=== PATIENT | female | born 1985 | race Caucasian/White ===

== ENCOUNTER 2023-08-01 13:31 | Emergency (ER) | payer OTHER, SELFPAY ==
[2023-08-01 13:35] VITALS: BP 146/98
[2023-08-01] MEDS: NSS 1000 IV (15:13)
--- NOTE | 2023-08-01 15:17 | ED.GENMED ---
History of Present Illness
General
Chief Complaint: Abdominal Symptoms
Source: patient
Exam Limitations: none
Time Seen by Provider: 08/01/23 14:29
Nursing documentation reviewed up to this point in time: agreed with
Travel History
Have you had any contact with someone who has COVID-19?: No
Do you have any symptoms of coronavirus? Fever > 100 degrees, chills, cough, shortness of breath, sore throat, loss of taste or smell, muscle aches, or headache?: No
History of Present Illness
History of Present Illness:
38-year-old female presents emergency room complaining of lower abdominal pain and vomiting for the last 4 days.
Past History
Past History
ED Past Medical History: Fibromyalgia, Other (hep C, Methadone, LUE Cellultitis, Fibermyalgia, 'Sponge kidney') and Other (IVDA)
ED Past Surgical History: Gynecological
Social History
Tobacco: Smoker
Alcohol: Occasional
Drug: Narcotics and IVDA
Personal: Single
Living: with family
Family History
Family History: Unable to obtain
Review of Systems
Review of Systems
Allergies reviewed?: Yes
All Other Systems: Not applicable
Constitutional: Reports no symptoms
EENT: Reports no symptoms
Respiratory: Reports no symptoms
Cardiac: Reports no symptoms
ABD/GI: Reports abdominal pain, nausea and vomiting
: Reports no symptoms
Musculoskeletal: Reports no symptoms
Skin: Reports no symptoms
Neurological: Reports no symptoms
Endocrine: Reports no symptoms
Hematologic/Lymphatic: Reports no symptoms
Psychiatric: Reports no symptoms
Phy Exam
Physical Exam
Physical Exam:
Physical Exam
General: Afebrile, elevated BMI
Neck: supple. no meningeal signs. normal posterior pharynx
Heart: s1/s2 regular rate and rhythm, no murmur. equal radial
pulses.
HEENT: Pupils equal round reactive to light, EOMI
Lungs: no acute respiratory distress. clear bilaterally
Abdomen: normal bowel sounds. Bilateral lower abdominal tenderness. no CVAT
Neuro: alert and oriented. no focal neurological deficits cranial nerves II through XII intact
Skin: no rash
Psychiatric: well kept. interactive and cooperative
Extremities: no edema. no calf tenderness. negative homans. good distal pulses
Course
Orders/Labs/Results
Orders:
Orders
08/01/23 15:04
0.9% Sodium Chloride 1000 ml [Nss] 1,000 ml IV BOLUS
Test Result ONCE
08/01/23 15:05
CT Abd/Pel (IV only)-DH only Urgent
Comment:
Reason For Exam: lower abdominal pain, vomiting
08/01/23 15:13
Complete Blood Count/With Diff Urgent
Comprehensive Metabolic Panel Urgent
HCG, Urine Qualitative Screen Urgent
Date Specimen was Collected: 08/01/23
Time Specimen was Collected: 15:11
Lipase Urgent
Urinalysis Reflex To Culture Urgent
Date Specimen was Collected: 08/01/23
Time Specimen was Collected: 15:11
Abnormal Lab Results
08/01/23
15:13
Absolute Lymphs (auto) 3.6 H 10^3/uL
(1.2-3.4)
Absolute Monos (auto) 0.8 H 10^3/uL
(0.1-0.6)
BUN 6 L mg/dl
(7-17)
AST 39 H U/L
(14-36)
08/01/23 15:13
08/01/23 15:13
Vital Signs
Initial and Last Documented VS:
Initial Vital Signs
Temp Pulse Resp BP Pulse Ox
98.2 F 85 16 146/98 98
08/01/23 13:35 08/01/23 13:35 08/01/23 13:35 08/01/23 13:35 08/01/23 13:35
Last Documented Vital Signs
Temp Pulse Resp BP Pulse Ox
98.2 F 62 18 101/58 96
08/01/23 13:35 08/01/23 16:28 08/01/23 16:28 08/01/23 16:28 08/01/23 16:28
MDM/Problems Addressed
Differential Diagnosis Includes:
Diverticulitis, appendicitis, gastroenteritis
MDM/Problems Addressed:
38-year-old female with lower abdominal pain, concern for diverticulitis versus appendicitis. CT scan pending.
Chronic conditions affecting care: Previous abdomnial surgery (, D&C, tubal ligation)
*Radiology
Radiology exam reviewed: radiology read reviewed (CT abdomen pelvis no acute findings, constipation)
*Pulse Oximetry
Patient hypoxic: no
*EKG
Interpreted by ED Provider?: NA
*Primary Special Education Teacher Interpretation
Rate: Primary Special Education Teacher- N/A
*Critical Care Note
Total Time (30-74mins, 75-104mins- exclusive of procedures): Not Applicable
Patient Management
Social determinants of health affecting care: Living situation and Substance abuse (Smoker, history of heroin abuse)
Escalation/DeEscalation of care consider admission/obs:
Admit not indicated
ED Attending Note
-
Portions of this chart may have been created with voice recognition software.� Occasional wrong word or��sound alike� substitutions may have occurred due to the inherent limitations of voice recognition software.
Discharge Plan
Departure
Patient Disposition: Home (Routine Discharge)
Date of Disposition: 08/01/23
Time of Disposition: 17:05
Patient with high blood pressure during this ER visit?: Yes
Discharge Problem:
Abdominal pain
Instructions: Abdominal Pain
Prescriptions:
No Action
acetaminophen [Tylenol Extra Strength] 500 mg Tablet
1,000 mg PO Q6H PRN (Reason: pain)
Referrals:
NONE,* [Family Provider] -
Activity Restrictions/Additional Instructions:
The cause of your pain is unclear. I did contact the GI office here and they should be calling you to arrange follow-up. Your blood work was unremarkable, there is no sign of urinary tract infection. You are not . The CAT scan did show a
moderate amount of stool�you could try taking icul-wbm-nycibex MiraLAX. The only other incidental 5 was what appeared to be a very small cyst or hemangioma on the liver�this would not be the cause of your symptoms.
Interventions
Interventions:
*Risk Screen - Suicide Last Done: 08/01/23 13:35
*General Assessment Last Done: 08/01/23 13:35
*Neglect/Abuse Screening Last Done: 08/01/23 13:35
ED- Fall Risk Assessment Last Done: 08/01/23 17:33
*Nursing Disposition Last Done: 08/01/23 17:33
RI-Mnzurn-Oyaymfywtc Assessment Last Done: 08/01/23 14:59
Discharge Date and Time
Discharge Date/Time: 08/01/23 17:33
[2023-08-01 15:28] LABS: % Basophils 0.5 % (0-2); % Eosinophils 1.5 % (0-6); % Immature Granulocytes 0.4 % (0-0.5); % Monocytes 7.8 % (1.7-9.3); % Neutrophils 52.8 % (42.2-75.2); Absolute Basophils 0.1 10^3/uL (0-0.2); Absolute Eosinophils 0.2 10^3/uL (0-0.7); Absolute Lymphocytes 3.6 10^3/uL (1.2-3.4); Absolute Monocytes 0.8 10^3/uL (0.1-0.6); Absolute Neutrophils 5.1 10^3/uL (1.4-6.5); Hemoglobin 13.2 g/dL (12.0-16.0); Mean Corp Hgb Conc. 34.7 g/dL (33.0-37.0); Mean Corpuscular Volume 86.4 fL (81.0-99.0); Mean Platelet Volume 9.9 fL (7.4-10.4); Nucleated Red Blood Cells % 0 %; Platelet Count 276 10^3/uL (130-400); Red Cell Dist. Width 12.9 % (11.5-14.5); White Blood Cell Count 9.7 10^3/uL (4.8-10.8)
[2023-08-01 15:29] LABS: Urine Albumin Negative (Neg - Trace); Urine Bilirubin Negative (Negative); Urine Character Clear (Clear); Urine Color Yellow; Urine Glucose Negative (Negative); Urine Ketone Negative (Negative); Urine Leukocyte Negative (Negative); Urine Nitrite Negative (Negative); Urine Occult Blood Negative (Negative); Urine Specific Gravity 1.005 (<1.030); Urine Urobilinogen 1+ (Neg - 1+)
[2023-08-01 15:35] LABS: HCG, Urine Qualitative Screen Negative
[2023-08-01 15:42] LABS: ALT (SGPT) 33 U/L (0-35); AST (SGOT) 39 U/L (14-36); Alkaline Phosphatase 83 U/L (38-126); Blood Urea Nitrogen 6 mg/dl (7-17); Calcium 8.5 mg/dl (8.4-10.2); Carbon Dioxide 28 mmol/L (22-30); Chloride 104 mmol/L (98-107); Glucose 97 mg/dl (70-99); Lipase 33 U/L (23-300); Potassium 3.8 mmol/L (3.5-5.1); Sodium 135 mmol/L (135-145); Total Bilirubin 0.3 mg/dl (0.2-1.3); Total Protein 6.7 g/dl (6.3-8.2); eGFR > 60.00
[2023-08-01 16:28] VITALS: BP 101/58
== END 2023-08-01 17:33 | disposition home or self-care (01) ==
LOC: EMR 13:31
PROVIDERS: EMERGENCY PHYSICIAN Emergency Medicine
DX: R10.30 Lower abdominal pain, unspecified (principal); R10.9 Unspecified abdominal pain; R11.10 Vomiting, unspecified; R03.0 Elevated blood-pressure reading, without diagnosis of hypertension; F17.200 Nicotine dependence, unspecified, uncomplicated
CPT/HCPCS: 99284; 96360; 74177; 80053; 81003; 81025; 83690; 85025; Q9967